=== PATIENT | female | born 1955 | race Caucasian/White ===

== ENCOUNTER 2016-11-01 00:25 | Emergency (ER) | payer OTHER ==
[2016-11-01 01:09] LABS: BASOPHIL 0.6 % (0-2); EOSINOPHIL 2.9 % (0-5); HCT 26.3 % (37.0-47.0); MCH 21.4 pg (25.0-31.0); MCHC 28.1 g/dL (32.0-36.0); MONOCYTE 10.5 % (0-12); MPV 8.6 fL (6.0-9.5); PLT 534 K/uL (150-400); RBC 3.46 M/uL (4.20-5.40); RDW 16.8 % (11.5-14.0); WBC 6.8 K/uL (4.0-10.5)
[2016-11-01 01:10] LABS: HGB 7.4 g/dl (12.5-16.0)
[2016-11-01 01:20] LABS: INR 1.04 (0.9-1.2); PROTHROMBIN TIME 12.7 SECONDS (11.4-13.2); PTT 23.4 SECONDS (24.3-32.1)
[2016-11-01 01:28] LABS: BILIRUBIN - TOTAL 0.2 mg/dL (0.1-1.0); CREATININE 0.7 mg/dL (0.5-1.0); GLOBULIN (CALCULATION) 2.5 g/dL (2.2-4.2); POTASSIUM 3.9 mmol/L (3.5-5.1); TOTAL PROTEIN 6.5 g/dL (6.4-8.3)
[2016-11-01 01:39] LABS: CKMB 1.86 ng/mL (0.97-4.94); TROPONIN T < 0.010 ng/mL
== END 2016-11-01 02:22 | disposition home or self-care (01) ==
LOC: FER 00:25
PROVIDERS: Emergency Medicine
DX: D64.9 Anemia, unspecified (principal); R07.9 Chest pain, unspecified; I10 Essential (primary) hypertension; E03.9 Hypothyroidism, unspecified; Z79.899 Other long term (current) drug therapy
CPT/HCPCS: 36415; 71020; 80053; 82550; 82553; 82728; 84484; 85025; 85610; 85730; 93005